=== PATIENT | male | born 1945 | race Caucasian/White ===

== ENCOUNTER 2021-10-04 00:27 | Observation (INO) | payer MEDICARE ==
[~2021-10-04] VITALS: Ht 188 cm; Wt 100.8 kg
[2021-10-04] MEDS ORDERED: HALOPERIDOL LACT 5 MG/ML VIAL. ONE (00:42)
[2021-10-04] MEDS ORDERED: diphenhydrAMINE 50 MG/ML VIAL ONE (00:42)
[2021-10-04] MEDS ORDERED: HALOPERIDOL LACT 5 MG/ML VIAL. IM ONE (00:45)
[2021-10-04] MEDS ORDERED: MORPHINE SULFATE 10 MG/ML SYRINGE. SQ ONE (00:45)
[2021-10-04] MEDS ORDERED: diphenhydrAMINE 50 MG/ML VIAL IM ONE (00:45)
[2021-10-04] MEDS ORDERED: diphenhydrAMINE 50 MG/ML VIAL IVP ONE (01:00)
[2021-10-04] MEDS ORDERED: HALOPERIDOL LACT 5 MG/ML VIAL. IVP ONE (01:00)
[2021-10-04] MEDS ORDERED: IV RINGERS SOLUTION,LACTATED 1,000 ML IV SCH (01:15)
[2021-10-04 02:00] LABS: BASO % 1 % (0-3); EOS # 0.3 x10^3/uL (0.0-0.7); EOS % 7 % (0-3); HEMATOCRIT 36.4 % (39.0-53.0); HEMOGLOBIN 11.9 g/dL (13.0-17.5); LYMPH # 0.6 x10^3/uL (1.0-4.8); LYMPH % 14 % (24-48); MEAN CORPUSCULAR HEMOGLOBIN 28 pg (25-35); MEAN CORPUSCULAR HGB CONC 33 g/dL (31-37); MEAN CORPUSCULAR VOLUME 84 fL (79-100); MONO # 0.6 x10^3/uL (0.0-1.1); MONO % 14 % (0-9); NEUT # 2.8 x10^3uL (1.8-7.7); NEUT % 65 % (31-73); PLATELET COUNT 191 x10^3/uL (140-400); RED BLOOD COUNT 4.33 x10^6/uL (4.30-5.70); RED CELL DISTRIBUTION WIDTH 16.9 % (11.5-14.5); WHITE BLOOD COUNT 4.3 x10^3/uL (4.0-11.0)
[2021-10-04 02:14] LABS: CALCIUM 8.7 mg/dL (8.5-10.1); CREATININE 0.9 mg/dL (0.7-1.3); POTASSIUM 4.2 mmol/L (3.5-5.1)
[2021-10-04 02:23] LABS: CLARITY,URINE CLEAR; COLOR,URINE YELLOW; GLUCOSE,URINE NEG (NEG)
[2021-10-04 02:24] LABS: BACTERIA,URINE 0 /HPF (0-FEW); NITRITE,URINE NEG (NEG); RBC,URINE 0 /HPF (0-2); SQUAMOUS EPITHELIAL CELL,UR OCC /LPF; UROBILINOGEN,URINE 0.2 mg/dL (0.2 mg/dL); WBC,URINE OCC /HPF (0-4)
[2021-10-04 02:26] LABS: ALBUMIN 2.9 g/dL (3.4-5.0); DIRECT BILIRUBIN 0.4 mg/dL (0.0-0.2); MAGNESIUM 1.7 mg/dL (1.8-2.4); TOTAL PROTEIN 6.1 g/dL (6.4-8.2)
--- NOTE | 2021-10-04 02:28 | PHYS DOC ---
Past History Past Medical History: A-Fib, CHF, Dementia Past Medical History BPH Past Surgical History: No Surgical History Alcohol Use: None General Adult EDM: Chief Complaint: ALTERED MENTAL STATUS HPI: HPI: "..He been so agitated tonight.. .. it has been getting worse... He he has severe dementia... According to the neurologist at [facility]... He is a DNR and DNI... But I hate to see him so miserable... Tonight he fell on his knees from the chair and then hit his face.. It did not knock him out.... but gave him a bloody nose,.,,, .. I think he is having trouble.. with urination.. he was to be on flomax... but I had stopped with with some of his other meds... It just he gets so agitated.. I can't control him.. or handle him....I just don't want him to suffer..." ( ) Patient is a 76 year old male who presents with above history and increased agitation. Patient did fall from a chair hitting his face which resulted in an epistaxis. Patient is no longer any anticoagulants. Focus of been primarily comfort care. Patient does take Haldol 2 mg, Ativan and Roxanol 0.5 mg for discomfort and agitation. Patient also take trazodone 50 mg at night for sleep. Patient has significant past medical history which consist of her artery bypass, diabetes, neoplasm of the prostate, obstructive sleep apnea, cardiac pacemaker, CHF, A. fib, angina pectoris, hypertension, vascular dementia with behavior disturbances. Patient normally follows with doctors at [facility]. Patient is on hospice and there is occasionally home health for patient. Review of Systems: Review of Systems: Pt. very poor historian. Constitutional: Denies fever or chills Eyes: Denies change in visual acuity HENT: Denies nasal congestion or sore throat Respiratory: Denies cough or shortness of breath Cardiovascular: Denies chest pain or edema GI: Denies abdominal pain, nausea, vomiting, bloody stools or diarrhea : Denies dysuria Musculoskeletal: Denies back pain or joint pain Integument: Denies rash Neurologic: Denies headache, focal weakness or sensory changes Endocrine: Denies polyuria or polydipsia Lymphatic: Denies swollen glands Psychiatric: Denies depression or anxiety Family History: Family History: Noncontributory to presentation Current Medications: Current Meds: Current Medications Medications (Trade) Dose Ordered Sig/Gilberto Start Time Stop Time Status Last Admin Dose Admin Diphenhydramine HCl (Benadryl) 50 mg 1X ONCE 10/04/21 01:00 10/04/21 01:01 DC 10/04/21 00:51 50 MG Haloperidol Lactate (Haldol) 5 mg 1X ONCE 10/04/21 01:00 10/04/21 01:01 DC 10/04/21 00:51 5 MG Lactated Ringer's 1,000 ml @ 100 mls/hr Q10H 10/04/21 01:15 10/04/21 11:14 Lorazepam (Ativan Inj) 2 mg 1X ONCE 10/04/21 01:00 10/04/21 01:01 DC 10/04/21 00:51 2 MG Morphine Sulfate (Morphine 10mg Syringe) 10 mg 1X ONCE 10/04/21 00:45 10/04/21 01:01 DC 10/04/21 00:53 10 MG Allergies: Allergies: Allergies Coded Allergies Type Severity Reaction Last Updated Verified Unable to Assess 10/04/21 No Physical Exam: PE: Constitutional: Very agitated appears to be uncomfortable, non-toxic appearance. [] HENT: Normocephalic, atraumatic, bilateral external ears normal, oropharynx moist, no oral exudates, nose epistaxis. No septal hematoma no active bleeding Eyes: PERRLA, EOMI, conjunctiva normal, no discharge. [] Neck: Normal range of motion, no tenderness, supple, no stridor. JVD sitting position Cardiovascular: Irregular heart rate regular rhythm, no murmur [] Lungs & Thorax: Bilateral breath sounds equal at apex with scattered crackles on auscultation [. Has] midline scar. Pacer on left Abdomen: Bowel sounds normal, soft, no tenderness, no masses, no pulsatile masses. [] Old surgery scar Skin: Warm, dry, no erythema, no rash. Poor turgor Back: No tenderness, no CVA tenderness. [] Extremities: No tenderness, no cyanosis, no clubbing, ROM intact, marked lower leg edema. [] Neurologic: Agitated, appears to be using all extremities, appears to have distal sensory, no new focal deficits noted per Psychologic: Affect agitated judgement obviously impaired, Current Patient Data: Vital Signs: Vital Signs Date Time Temp Pulse Resp B/P (MAP) Pulse Ox O2 Delivery O2 Flow Rate FiO2 10/04/21 00:54 88 16 107/68 (81) 98 EKG: EKG: My interpretation EKG shows a irregular rhythm. No obvious P waves. PVCs. T wave abnormality particularly in inferior lateral position. No findings of acute STEMI or contralateral changes. Does have occasional pacer spikes. Time EKG is 343 hours [] Radiology/Procedures: Radiology/Procedures: CT head deferred per [][place] [address] IMAGING REPORT Signed PATIENT: HYUN HINKLE ACCOUNT: [id number] : 1945 LOCATION: ER HOLD AGE: 76 SEX: M EXAM STATUS: ADM IN ORD. PHYSICIAN: LUCIAN DARDEN MD REASON: chf, hx PROCEDURE: CHEST AP ONLY EXAMINATION: XR CHEST 1V CLINICAL HISTORY: CHF. EXAM DATE/TIME: 10/04/2021 3:14 AM COMPARISON: None FINDINGS: Lines, Tubes, and Devices: Left-sided dual-chamber cardiac pacemaker/ICD. Cardiomediastinal Silhouette: Cardiomegaly. Aortic atherosclerotic calcification. Lungs and Pleura: Suspected small bilateral pleural effusions with overlying airspace disease, greater on the left but suboptimally evaluated. Nonspecific diffuse interstitial prominence, suspicious for edema. Left hilar curvilinear subsegmental atelectasis and/or scarring. Bones and Soft Tissues: Degenerative changes in the thoracic spine. Median sternotomy wires. IMPRESSION: Findings suspicious for volume overload as described. Electronically signed by: Bo Marino DO (10/04/2021 3:31 AM) [facility] DICTATED AND SIGNED BY: BO MARINO DO DATE: 10/04/21 0329 CC: LUCIAN DARDEN MD; CONNIE CUMMINGS MD; PCP,NO ~ Heart Score: C/O Chest Pain: No Risk Factors: Risk Factors: DM, Current or recent (<one month) smoker, HTN, HLP, family history of CAD, obesity. Risk Scores: Score 0 - 3: 2.5% MACE over next 6 weeks - Discharge Home Score 4 - 6: 20.3% MACE over next 6 weeks - Admit for Clinical Observation Score 7 - 10: 72.7% MACE over next 6 weeks - Early Invasive Strategies Course & Med Decision Making: Course & Med Decision Making Pertinent Labs and Imaging studies reviewed. (See chart for details) Discussions with she advised that she can be managed at home she would like to have her hip become so agitated she has not been able to consistently giving meds. Patient is to remain DNR DNI and no shocks. Advised we can sedate order to obtain labs and check his urine. Discussed presentation, testing and tx. with Dr. Cummings- advised to admit to his service- Medical- Non Tele. with primary diagnosis of CHF. Impression: 1. Hx Fall from Chair on to knees 2. Head Injury-epistaxis. Fall from knees onto face 3. Hx. of Advanced Dementia 4. Hx. CHF- BNP 5052 5. Hx. Afib/ and Pacer 6. Hx. BPH 7. Hyponatremia 8. Malnutrition Alb. 2.9 9. 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 [] Dragon Disclaimer: Dragon Disclaimer: This electronic medical record was generated, in whole or in part, using a voice recognition dictation system. Departure Departure: Referrals: PCP,NO (PCP) Dragon Disclaimer This chart was dictated in whole or in part using Voice Recognition software in a busy, high-work load, and often noisy Emergency Department environment. It may contain unintended and wholly unrecognized errors or omissions. Dragon Disclaimer This chart was dictated in whole or in part using Voice Recognition software in a busy, high-work load, and often noisy Emergency Department environment. It may contain unintended and wholly unrecognized errors or omissions. LUCIAN DARDEN MD Oct 04, 2021 02:27
[2021-10-04] MEDS ORDERED: FUROSEMIDE 40 MG/4 ML VIAL IVP ONE (03:00)
[2021-10-04] MEDS ORDERED: ACETAMINOPHEN 325 MG TABLET PO PRN (03:15)
[2021-10-04] MEDS ORDERED: ONDANSETRON PF 4 MG/2 ML VIAL. IVP PRN (03:15)
--- NOTE | 2021-10-04 03:33 | RAD ---
EXAMINATION: XR CHEST 1V CLINICAL HISTORY: CHF. EXAM DATE/TIME: 10/04/2021 3:14 AM COMPARISON: None FINDINGS: Lines, Tubes, and Devices: Left-sided dual-chamber cardiac pacemaker/ICD. Cardiomediastinal Silhouette: Cardiomegaly. Aortic atherosclerotic calcification. Lungs and Pleura: Suspected small bilateral pleural effusions with overlying airspace disease, greate r on the left but suboptimally evaluated. Nonspecific diffuse interstitial prominence, suspicious for edema. Left hilar curvilinear subsegmental atelectasis and/or scarring. Bones and Soft Tissues: Degenerative changes in the thoracic spine. Median sternotomy wires. IMPRESSION: Findings suspicious for volume overload as described. Electronically signed by: Bo Childers DO (10/04/2021 3:31 AM) TALIA
[2021-10-04] MEDS ORDERED: METF10007 PO (04:25)
[2021-10-04] MEDS ORDERED: GLIM4TAB8 PO (04:28)
[2021-10-04] MEDS ORDERED: TRAZ-120 PO (04:29)
[2021-10-04 04:37] VITALS: BP 126/50
[2021-10-04] MEDS ORDERED: QUET25TA5 PO (04:42)
[2021-10-04] MEDS ORDERED: CELE100C PO (04:42)
[2021-10-04] MEDS ORDERED: MELA3CAP2 PO (04:42)
[2021-10-04] MEDS ORDERED: LORA-254 PO (04:42)
[2021-10-04] MEDS ORDERED: HALDOL PO (04:42)
[2021-10-04] MEDS: IPRATRPIUM/ALBUTEROL 0.5/2.5MG 3 ML NEBU. NEB SCH ×4 (05:19→19:50)
[2021-10-04] MEDS: metFORMIN 500 MG TABLET PO SCH ×2 (08:30→17:00)
[2021-10-04] MEDS ORDERED: HALOPERIDOL 10 MG/5 ML ORAL.CONC. PO PRN (08:30)
[2021-10-04] MEDS: LORazepam 1 MG TABLET PO SCH ×2 (08:34→22:16)
[2021-10-04] MEDS: GLIMEPIRIDE 2 MG TABLET PO SCH (08:34)
--- NOTE | 2021-10-04 08:39 | HP ---
DATE OF SERVICE: 10/04/2021 ADMIT DATE: 10/04/2021 ATTENDING PHYSICIAN: Dr. Ball. CHIEF COMPLAINT: Altered mentation. HISTORY OF PRESENT ILLNESS: The patient is a 76-year-old gentleman with underlying dementia. He usually sees a neurologist in [facility]. He was admitted through our ED. No local physicians here. The has been having trouble with him. She cannot manage him. He is a DNR per advanced directive. He really needs a higher level of care. I am in the process of contacting her to see what senior living they would like to go to. He was given Haldol and Ativan to calm him down. He was fairly asleep by the time I saw him. PAST MEDICAL HISTORY: Significant for atrial fibrillation, hypertension, and profound dementia. There is a remote history of congestive heart failure. CURRENT MEDICATIONS: Reviewed. He was on Celebrex, trazodone, Seroquel, lorazepam, metformin, glimepiride, melatonin, and Haldol p.r.n. ALLERGIES: HE HAS ALLERGIES TO WHEAT. No drug allergies. SOCIAL HISTORY: Smoking and drinking history unobtainable. FAMILY HISTORY: Unobtainable. REVIEW OF SYSTEMS: Unobtainable. PHYSICAL EXAMINATION: GENERAL: When I saw him, this is obtunded gentleman who was not arousable. VITAL SIGNS: Initial vital signs showed a blood pressure of 126/50, pulse is 88 and regular. He is afebrile. Oxygen saturation 95% on room air. HEENT: Head is without trauma. Pupils are reactive. Sclerae nonicteric. The oropharynx is clear. NECK: Supple. No bruits identified. LUNGS: Shallow respirations. CARDIOVASCULAR: Showed regular heart tones. ABDOMEN: Soft. No guarding. EXTREMITIES: Show 2+ pitting edema of the lower extremities. NEUROLOGIC: He is sedated. LABORATORY DATA: Admission hemoglobin is 11.9 g/dL with a white count of 4300. Sodium is 128 mEq per liter. Cardiac enzymes negative for coronary ischemia. Creatinine 0.9 mg percent. He had a chest x-ray, which showed volume overload and vascular congestion. ASSESSMENT: 1. A 76-year-old gentleman with agitation. is unable to manage him. 2. [id number] congestive heart failure. 3. Paroxysmal atrial fibrillation. 4. Type 2 diabetes. PLAN: 1. Admit to the inpatient unit. 2. Diuresis. 3. He does not require supplemental oxygen. 4. We will stop the Celebrex right now, which will aggravate heart failure. 5. I will try to contact the as to placement. 6. He is a DNR per advanced directive. TATIANA DR: Megha TID: [id number]
[2021-10-04 11:15] VITALS: BP 114/72
[2021-10-04 19:10] VITALS: BP 125/76
--- NOTE | 2021-10-04 21:02 | EKG ---
[address] [address] Test Date: 2021-10-04 Test Time: 03:43:22 Pat Name: HYUN HINKLE Department: Room: 109 A Gender: M Idea Worker: LAYLA : 1945 Requested By: LUCIAN DARDEN Order Number: [id number] Reading MD: Lopez Ying Measurements Intervals [place] Rate: 98 P: MO: QRS: 167 QRSD: 22 T: 17 QT: 244 QTc: 313 Interpretive Statements ATRIAL FIBRILLATION VENTRICULAR PREMATURE COMPLEX(ES) ABNORMAL RIGHT AXIS DEVIATION T ABNORMALITY IN ANTERIOR LEADS INFEROLATERAL LEADS ABNORMAL ECG RI6.02 No previous ECG available for comparison Electronically Signed On 10-04-2021 21:17:00 CDT by Lopez Ying
[2021-10-04] MEDS: traZODone 50 MG TABLET. PO SCH (22:16)
[2021-10-04] MEDS: QUEtiapine 25 MG TABLET. PO SCH (22:17)
[2021-10-04] MEDS: HALOPERIDOL 10 MG/5 ML ORAL.CONC. PO SCH (22:17)
[2021-10-04] MEDS: MIRTAZAPINE 7.5 MG TABLET. PO SCH (22:17)
[2021-10-05 06:02] VITALS: BP 123/78
[2021-10-05] MEDS: metFORMIN 500 MG TABLET PO SCH ×3 (08:00→19:59)
[2021-10-05] MEDS: HALOPERIDOL 10 MG/5 ML ORAL.CONC. PO SCH (08:50)
[2021-10-05] MEDS: MORPHINE SULFATE 20 MG/ML CONC SOLUTION. SL PRN ×2 (08:50→13:46)
[2021-10-05] MEDS: GLIMEPIRIDE 2 MG TABLET PO SCH (09:00)
[2021-10-05] MEDS: LORazepam 1 MG TABLET PO SCH ×3 (09:00→11:03)
[2021-10-05 09:53] LABS: BASO # 0.1 x10^3/uL (0.0-0.2); BASO % 2 % (0-3); EOS # 0.5 x10^3/uL (0.0-0.7); EOS % 10 % (0-3); HEMATOCRIT 39.3 % (39.0-53.0); HEMOGLOBIN 12.7 g/dL (13.0-17.5); LYMPH # 0.7 x10^3/uL (1.0-4.8); LYMPH % 14 % (24-48); MEAN CORPUSCULAR HEMOGLOBIN 27 pg (25-35); MEAN CORPUSCULAR HGB CONC 32 g/dL (31-37); MEAN CORPUSCULAR VOLUME 85 fL (79-100); MONO # 0.6 x10^3/uL (0.0-1.1); MONO % 13 % (0-9); NEUT % 61 % (31-73); PLATELET COUNT 204 x10^3/uL (140-400); RED BLOOD COUNT 4.62 x10^6/uL (4.30-5.70); RED CELL DISTRIBUTION WIDTH 17.4 % (11.5-14.5)
[2021-10-05 09:59] LABS: CALCIUM 8.6 mg/dL (8.5-10.1); CREATININE 0.9 mg/dL (0.7-1.3)
[2021-10-05] MEDS ORDERED: LORazepam 1 MG TABLET PO PRN (12:00)
[2021-10-05 19:53] VITALS: BP 147/79
[2021-10-05] MEDS: MIRTAZAPINE 7.5 MG TABLET. PO SCH (19:56)
[2021-10-05] MEDS: traZODone 50 MG TABLET. PO SCH (19:56)
[2021-10-05] MEDS: QUEtiapine 25 MG TABLET. PO SCH (19:57)
[2021-10-05] MEDS ORDERED: MIRTAZAPINE 7.5 MG TABLET. PO SCH (21:00)
--- NOTE | 2021-10-05 22:14 | PDOC ---
Exam Note: Alli Note: Late entry for 10/04/2021. Please also refer to the separate dictated note~for this date of service dictated separately.~Patient seen individually. Discussed the patient with Nursing staff reviewed the chart.~Reviewed interim history and current functioning. Reviewed vital signs,~Labs/ Radiology~and current medi cations noted below. Continue current treatment with the changes noted in the dictated addendum note Assessment: Vital Signs/I&O: Vital Signs Date Time Temp Pulse Resp B/P (MAP) Pulse Ox O2 Delivery O2 Flow Rate FiO2 10/05/21 19:53 98.2 88 18 147/79 (101) 93 Room Air I & O 10/04/21 10/04/21 10/05/21 15:00 23:00 07:00 Output Total 1700 ml 750 ml 1150 ml Balance -1700 ml -750 ml -1150 ml Labs: Laboratory Tests Test 10/05/21 09:40 White Blood Count 5.0 x10^3/uL (4.0-11.0) Red Blood Count 4.62 x10^6/uL (4.30-5.70) Hemoglobin 12.7 g/dL (13.0-17.5) L Hematocrit 39.3 % (39.0-53.0) Mean Corpuscular Volume 85 fL (79-100) Mean Corpuscular Hemoglobin 27 pg (25-35) Mean Corpuscular Hemoglobin Concent 32 g/dL (31-37) Red Cell Distribution Width 17.4 % (11.5-14.5) H Platelet Count 204 x10^3/uL (140-400) Neutrophils (%) (Auto) 61 % (31-73) Lymphocytes (%) (Auto) 14 % (24-48) L Monocytes (%) (Auto) 13 % (0-9) H Eosinophils (%) (Auto) 10 % (0-3) H Basophils (%) (Auto) 2 % (0-3) Neutrophils # (Auto) 3.0 x10^3uL (1.8-7.7) Lymphocytes # (Auto) 0.7 x10^3/uL (1.0-4.8) L Monocytes # (Auto) 0.6 x10^3/uL (0.0-1.1) Eosinophils # (Auto) 0.5 x10^3/uL (0.0-0.7) Basophils # (Auto) 0.1 x10^3/uL (0.0-0.2) Sodium Level 136 mmol/L (136-145) Potassium Level 4.0 mmol/L (3.5-5.1) Chloride Level 103 mmol/L (98-107) Carbon Dioxide Level 26 mmol/L (21-32) Anion Gap 7 (6-14) Blood Urea Nitrogen 14 mg/dL (8-26) Creatinine 0.9 mg/dL (0.7-1.3) Estimated GFR (Cockcroft-Gault) 82.0 Glucose Level 96 mg/dL (70-99) Calcium Level 8.6 mg/dL (8.5-10.1) Current Medications: Meds: Laboratory Tests Test 10/05/21 09:40 White Blood Count 5.0 x10^3/uL Red Blood Count 4.62 x10^6/uL Hemoglobin 12.7 g/dL Hematocrit 39.3 % Mean Corpuscular Volume 85 fL Mean Corpuscular Hemoglobin 27 pg Mean Corpuscular Hemoglobin Concent 32 g/dL Red Cell Distribution Width 17.4 % Platelet Count 204 x10^3/uL Neutrophils (%) (Auto) 61 % Lymphocytes (%) (Auto) 14 % Monocytes (%) (Auto) 13 % Eosinophils (%) (Auto) 10 % Basophils (%) (Auto) 2 % Neutrophils # (Auto) 3.0 x10^3uL Lymphocytes # (Auto) 0.7 x10^3/uL Monocytes # (Auto) 0.6 x10^3/uL Eosinophils # (Auto) 0.5 x10^3/uL Basophils # (Auto) 0.1 x10^3/uL Sodium Level 136 mmol/L Potassium Level 4.0 mmol/L Chloride Level 103 mmol/L Carbon Dioxide Level 26 mmol/L Anion Gap 7 Blood Urea Nitrogen 14 mg/dL Creatinine 0.9 mg/dL Estimated GFR (Cockcroft-Gault) 82.0 Glucose Level 96 mg/dL Calcium Level 8.6 mg/dL Current Medications Medications (Trade) Dose Ordered Sig/Gilberto Route PRN Reason Start Time Stop Time Status Last Admin Dose Admin Haloperidol Lactate (Haldol) 5 mg 1X ONCE IM 10/04/21 00:45 10/04/21 00:47 DC Diphenhydramine HCl (Benadryl) 50 mg 1X ONCE IM 10/04/21 00:45 10/04/21 00:47 DC Morphine Sulfate (Morphine 10mg Syringe) 10 mg 1X ONCE SQ 10/04/21 00:45 10/04/21 01:01 DC 10/04/21 00:53 Haloperidol Lactate (Haldol) 5 mg STK-MED ONCE .ROUTE 10/04/21 00:42 10/04/21 00:47 DC Diphenhydramine HCl (Benadryl) 50 mg STK-MED ONCE .ROUTE 10/04/21 00:42 10/04/21 00:47 DC Haloperidol Lactate (Haldol) 5 mg 1X ONCE IVP 10/04/21 01:00 10/04/21 01:01 DC 10/04/21 00:51 Diphenhydramine HCl (Benadryl) 50 mg 1X ONCE IVP 10/04/21 01:00 10/04/21 01:01 DC 10/04/21 00:51 Lorazepam (Ativan Inj) 2 mg 1X ONCE IVP 10/04/21 01:00 10/04/21 01:01 DC 10/04/21 00:51 Lactated Ringer's 1,000 ml @ 100 mls/hr Q10H IV 10/04/21 01:15 10/04/21 11:14 DC 10/04/21 02:34 Furosemide (Lasix) 40 mg 1X ONCE IVP 10/04/21 03:00 10/04/21 03:01 DC 10/04/21 03:47 Ondansetron HCl (Zofran) 4 mg PRN Q4HRS PRN IVP NAUSEA/VOMITING 10/04/21 03:15 10/05/21 03:15 DC Acetaminophen (Tylenol) 650 mg PRN Q4HRS PRN PO FEVER > 100.3'F 10/04/21 03:15 10/05/21 03:15 DC Albuterol/ Ipratropium (Duoneb) 3 ml RTQID NEB 10/04/21 08:00 10/05/21 07:59 DC Lorazepam (Ativan Inj) 2 mg QIDPRN ONCE IVP 10/04/21 03:15 10/04/21 03:16 DC Lorazepam (Ativan Inj) 2 mg PRN QHS PRN IVP ANXIETY / AGITATION 10/04/21 21:00 Cancel Trazodone HCl (Desyrel) 50 mg HS PO 10/04/21 21:00 10/05/21 19:56 Haloperidol Lactate (HALDOL 10mg ORAL CONC) 2 mg HS PO 10/04/21 21:00 10/05/21 08:50 Lorazepam (Ativan) 1 mg BID PO 10/04/21 09:00 10/05/21 11:54 DC 10/05/21 11:03 Quetiapine Fumarate (SEROquel) 25 mg QHS PO 10/04/21 21:00 10/05/21 19:57 Glimepiride (Amaryl) 2 mg DAILY PO 10/04/21 09:00 Metformin HCl (Glucophage) 1,000 mg BIDWMEALS PO 10/04/21 08:30 Haloperidol Lactate (HALDOL 10mg ORAL CONC) 2 mg PRN Q4HRS PRN PO 2nd choice agitation 10/04/21 08:30 Lorazepam (Ativan Inj) 1 mg PRN Q4HRS PRN IVP 3rd choice anxiety/agitated 10/04/21 14:00 10/05/21 20:02 Mirtazapine (Remeron) 7.5 mg QHS PO 10/04/21 21:00 10/05/21 19:56 Olanzapine (ZyPREXA ZYDIS) 2.5 mg PRN Q2HRS PRN PO PSYCHOSIS 10/04/21 20:45 10/05/21 20:52 Morphine Sulfate (Roxanol Conc) 10 mg PRN Q4HRS PRN SL PAIN 10/05/21 08:30 10/05/21 13:46 Lorazepam (Ativan) 1 mg PRN Q4HRS PRN PO 1st choice anxiety/agitation 10/05/21 12:00 Mirtazapine (Remeron) 7.5 mg QHS PO 10/05/21 21:00 UNV Current Medications Medications (Trade) Dose Ordered Sig/Gilberto Route PRN Reason Start Time Stop Time Status Last Admin Dose Admin Morphine Sulfate (Roxanol Conc) 10 mg PRN Q4HRS PRN SL PAIN 10/05/21 08:30 10/05/21 13:46 I have reviewed the current psychotropics carefully including drug interactions. Risk benefit ratio favors no change other than as noted in my dictated progress note. ERICK CANO MD Oct 05, 2021 22:14
--- NOTE | 2021-10-05 22:40 | CONS ---
DATE OF CONSULTATION: 10/05/2021 PSYCHIATRIC ADMISSION HISTORY/EVALUATION This is a late entry, date of service 10/04/2021, covers elements not covered in my initial note 10/04/2021. The patient seen individually in his room 109, [address] [place] [address], on evening of 10/04/2021, discussed with nursing staff, reviewed the chart. IDENTIFYING DATA: The patient is a 76-year-old male referred by Dr. Ball on account of worsening behaviors related to his progressively worsening dementia while he has been living at home with family. He has had marked insomnia, agitation and aggression towards his refusing medications. He has been on hospice care as well. He has failed all of these interventions from a psychiatric behavioral standpoint and has been referred for evaluation of his psychotropics. I met with the patient in his room, but he is oriented just to himself if that. Not able to provide a history, quite sedated. HISTORY OF PRESENT ILLNESS: Reportedly, the patient has been seen by neurologist in [facility]. He was admitted to [address] [place] [address] via the Emergency Department. He has been increasingly agitated with sleep and appetite changes. No active suicidal or homicidal ideation. No symptoms of bipolar disorder. PAST PSYCHIATRIC HISTORY: As above. MEDICAL HISTORY: Atrial fibrillation, hypertension, congestive heart failure and he is admitted with acute on chronic congestive heart failure, also has a history of paroxysmal atrial fibrillation and type 2 diabetes mellitus. FAMILY HISTORY: Noncontributory. SOCIAL HISTORY: The patient lives at home with his . He has been on hospice care. No alcohol, drug abuse history is noted. CURRENT PSYCHOTROPICS: Haldol concentrate 2 mg at bedtime and 2 mg oral q. 4 hours p.r.n., psychosis, agitation; Ativan 1 mg b.i.d. plus Ativan IM p.r.n. Seroquel 25 mg at bedtime, trazodone 50 mg at bedtime. FAMILY HISTORY: Noncontributory. SOCIAL HISTORY: No alcohol, drug abuse history is noted. MENTAL STATUS EXAM: The patient is oriented to himself. Insight, judgment, recent and remote memory, attention, concentration, fund of knowledge poor consistent with his diagnosis as per the observation by nursing staff. During the individual visit, the patient was sedated, not verbally interactive at all, oriented barely to himself. IMPRESSION: Major neurocognitive disorder, Alzheimer, vascular with delusion, depression, behavioral disturbance, anxiety disorder, unspecified; impulse control disorder, unspecified. Rest as noted above. PLAN: From a psychiatric standpoint, discussed with nursing staff and we will go ahead and taper the Ativan down from 1 mg twice a day down to 0.5 mg twice a day. Maintain Haldol 2 mg at bedtime and add Zyprexa 2.5 mg q. 2 hours p.r.n., psychosis, agitation, max 7.5 mg in 24 hours. Consider adding an SSRI agent and also consider Depakote as a mood stabilizer, behavioral dyscontrol persists. We may consider transitioning him to the [facility], once he is medically stable from his hyponatremia and failure to thrive per Dr. Ball. Dr. Ball, thank you for the opportunity to participate in your patient's care. We will follow with you. REYMUNDO DR: Sasha TID: [id number]
--- NOTE | 2021-10-05 22:47 | PN ---
DATE: 10/05/2021 ATTENDING PHYSICIAN: Dr. Ball. SUBJECTIVE: Very confused, agitated. He is being fed. He is bedridden. He is pulling out his Esquivel catheter. P.r.n. Ativan and morphine has been ordered. He turns out in talking with his niece who is a registered nurse here at this hospital, he has already been on hospice [facility]. This information was not garnered to us. Therefore, they may not understand how hospice system works. In any event, we are still keeping him here and we will try for care home placement starting tomorrow. OBJECTIVE FINDINGS: VITAL SIGNS: Blood pressure this morning is 125/76 mmHg. He is afebrile, pulse is 94 per minute and his oxygen saturation is at 95% on room air. HEENT: Head is without trauma. Pupils are reactive. Sclerae nonicteric. Oropharynx is clear. NECK: Supple. LUNGS: Shallow respirations. CARDIOVASCULAR: Regular heart tones. ABDOMEN: Soft. EXTREMITIES: Showed 2+ edema. Esquivel catheter is in place. ASSESSMENT: 1. A 76-year-old gentleman with profound dementia, unable to be managed at home. He has significant agitation. 2. Acute on chronic congestive heart failure. 3. I find evidence of a pacemaker defibrillator. 4. Paroxysmal atrial fibrillation. 5. Type 2 diabetes mellitus. PLAN: 1. We shall remove the Esquivel catheter. 2. P.r.n. Ativan and morphine. 3. Diet as tolerated. 4. We are working on care home placement. He is a DNR per advanced directive. SREEKANTH/GIOVANNY/SADE DR: Megha TID: [id number]
[2021-10-06] MEDS: GLIMEPIRIDE 2 MG TABLET PO SCH (09:00)
[2021-10-06 11:00] VITALS: BP 152/90
[2021-10-06] MEDS: MORPHINE SULFATE 20 MG/ML CONC SOLUTION. SL PRN (11:53)
[2021-10-06] MEDS ORDERED: GLIM2TAB7 PO (16:08)
[2021-10-06] MEDS ORDERED: LORA2ORA8 PO (16:08)
[2021-10-06] MEDS ORDERED: HALO2TAB PO ×2 (16:08)
[2021-10-06] MEDS ORDERED: MIRT7.5T8 PO (16:08)
[2021-10-06] MEDS ORDERED: OLAN5TAB67 PO (16:08)
[2021-10-06] MEDS ORDERED: MOR20SLSJL SL (16:08)
[2021-10-06] MEDS ORDERED: QUET25TA5 PO (16:08)
--- NOTE | 2021-10-06 16:14 | DS ---
DATE OF DISCHARGE: 10/06/2021 ATTENDING PHYSICIAN: Dr. Ball. FINAL DISCHARGE DIAGNOSES: 1. Acute delirium with agitation. 2. Underlying dementia. 3. Chronic congestive heart failure, compensated. 4. Paroxysmal atrial fibrillation. 5. Type 2 diabetes mellitus. HISTORY AND PHYSICAL: The patient, age 76, has profound dementia. He has been agitated, cannot manage him. As it turned out, he was already admitted to [facility] service with end-stage dementia. She never told the ER, brought him to the ED. ED did not know and admitted him to my service. PHYSICAL EXAMINATION: Please see the dictated note. PERTINENT LABORATORY AND X-RAY STUDIES: Hemoglobin 12.7 grams, white count 5000. Chemistry panel unremarkable. Troponins were negative. Chest x-ray on admission was clear with mild volume overload. COURSE IN THE HOSPITAL: The patient was admitted. He is a DNR per advanced directives. He was seen in consultation with Dr. Sanderson. He recommended some antipsychotic medications. Please refer to his note. He calmed down. We were able to discuss with the family. He has a niece that actually is a nurse here in the hospital. On the third hospital day, our family caseworker were able to contact [facility] for acute restless care in this situation. He is discharged then with continuation of his Amaryl 2 mg daily, Haldol 2 mg p.r.n., lorazepam 1 mg q.4 hours p.r.n. agitation, Remeron, morphine sulfate 10 mg q.4 hours p.r.n, Zyprexa Zydis, Seroquel, metformin, and trazodone doses unchanged. He is a DNR. His prognosis is poor. He was discharged then from our hospital in stable condition with explicit drug and followup of end-of-life care. SREEKANTH/JAVIER/CLIFF DR: Megha TID: [id number]
--- NOTE | 2021-10-07 08:37 | PDOC ---
Exam Note: Alli Note: This note is a late entry for 10/05/2021 covers elements not covered in my initial note. Subjective: The patient was seen individually on 10/05/2021, discussed and reviewed the chart with nursing staff. Per nursing staff, the patient has been intermittently agitated during the day and used all 3 dosages of his Zyprexa 2.5 mg. We will increase the maximum dosage from 7.5 mg to 10 mg in 24 hours for his agitation. He also has some intermittent restlessness and some insomnia despite the trazodone. We will add Remeron 7.5 mg p.o. h.s. and consider using SSRIs for agitation, anxiety and Depakote as a mood stabilizer if needed. He may need transition to [facility] if behaviors persist despite medical stabilization. Also discussed with Sybil TOMLIN evening wash house supervisor and reportedly the family is wanting him kept comfortable and as sedated as possible to prevent behavioral problems. He has been on hospice for some time as well. He was lying in bed with protective covers on the metal railings of the bed because of his restlessness and agitation. He is not verbally interactive, quite sedated. Mental Status Exam: Per nursing observation, insight and judgment, recent and remote memory, attention and concentration, fund of knowledge is poor consistent with his diagnoses. Impression: Major neurocognitive disorder, Alzheimer, vascular with delusion, depression, behavioral disturbance. Anxiety disorder unspecified. Impulse control disorder unspecified. Plan: Continue psychotropics as mentioned above including adding Remeron, maintaining trazodone, Ativan is being reduce. He remains on Haldol and Seroquel. We will consider transition to SB once he is medically stable. We will keep open the option of SSRIs versus Depakote if behavioral dyscontrol persists despite all of the above. Assessment: Vital Signs/I&O: Vital Signs Date Time Temp Pulse Resp B/P (MAP) Pulse Ox O2 Delivery O2 Flow Rate FiO2 10/06/21 12:23 93 Room Air 10/06/21 11:53 17 10/06/21 11:00 96.9 71 152/90 (110) I & O 10/06/21 10/06/21 10/07/21 15:00 23:00 07:00 Intake Total 0 ml Balance 0 ml Current Medications: I have reviewed the current psychotropics carefully including drug interactions. Risk benefit ratio favors no change other than as noted in my dictated progress note. Diagnosis: Problems: (1) Major neurocognitive disorder (2) Dementia in Alzheimer's disease with delusions (3) Dementia in Alzheimer's disease with depression (4) Dementia in Alzheimer's disease with early onset with behavioral disturbance (5) Dementia, vascular, with delusions (6) Dementia, vascular, with depression (7) Anxiety disorder, unspecified (8) Impulse control disorder, unspecified ERICK CANO MD Oct 07, 2021 08:37
== END 2021-10-06 14:50 | disposition hospice, inpatient (51) ==
LOC: ER 00:27 → INTOOBSV 03:03 → ER HOLD 03:03 → 1 SOUTH 04:03
PROVIDERS: ADMIT Hospitalist; ATTEND Hospitalist
DX: R41.0 Disorientation, unspecified (principal); F02.81 Dementia in other diseases classified elsewhere, unspecified severity, with behavioral disturbance; I11.0 Hypertensive heart disease with heart failure; S09.90XA Unspecified injury of head, initial encounter; I50.33 Acute on chronic diastolic (congestive) heart failure; I48.0 Paroxysmal atrial fibrillation; E11.9 Type 2 diabetes mellitus without complications; E46 Unspecified protein-calorie malnutrition; R45.1 Restlessness and agitation; E87.1 Hypo-osmolality and hyponatremia; D64.9 Anemia, unspecified; F01.51 Vascular dementia, unspecified severity, with behavioral disturbance; F32.A Depression, unspecified; F41.9 Anxiety disorder, unspecified; F63.9 Impulse disorder, unspecified; G30.9 Alzheimer's disease, unspecified; G47.00 Insomnia, unspecified; N40.0 Benign prostatic hyperplasia without lower urinary tract symptoms; R04.0 Epistaxis; Z51.5 Encounter for palliative care; Z66 Do not resuscitate; Z74.01 Bed confinement status; Z79.84 Long term (current) use of oral hypoglycemic drugs; Z95.0 Presence of cardiac pacemaker; Z68.28 Body mass index [BMI] 28.0-28.9, adult; W07.XXXA Fall from chair, initial encounter; Y92.89 Other specified places as the place of occurrence of the external cause; Y93.89 Activity, other specified; Y99.8 Other external cause status
CPT/HCPCS: 36415; 51702; 71045; 80048; 80076; 81001; 83735; 83880; 84484; 85025; 85730; 93005; 96372; 96374; 96375; 96376; 99285; G0378; J1200; J1630; J1940; J2060; J2270; J7120; 96361; G0379

== ENCOUNTER 2021-10-06 14:55 | Inpatient (IN) | payer OTHER ==
[~2021-10-06 14:55] MED LIST: CELE100C PO; GLIM4TAB8 PO; HALDOL PO; LORA-254 PO; MELA3CAP2 PO; METF10007 PO; QUET25TA5 PO; TRAZ-120 PO
[2021-10-06] MEDS ORDERED: QUET25TA5 PO (16:08)
[2021-10-06] MEDS ORDERED: GLIM2TAB7 PO (16:08)
[2021-10-06] MEDS ORDERED: LORA2ORA8 PO (16:08)
[2021-10-06] MEDS ORDERED: MOR20SLSJL SL (16:08)
[2021-10-06] MEDS ORDERED: HALO2TAB PO ×2 (16:08)
[2021-10-06] MEDS ORDERED: OLAN5TAB67 PO (16:08)
[2021-10-06] MEDS ORDERED: MIRT7.5T8 PO (16:08)
[2021-10-06] MEDS ORDERED: LORazepam 1 MG TABLET PO PRN (16:45)
[2021-10-06] MEDS ORDERED: HALOPERIDOL 10 MG/5 ML ORAL.CONC. PO PRN (16:45)
[2021-10-06] MEDS: metFORMIN 500 MG TABLET PO SCH (17:00)
[2021-10-06] MEDS ORDERED: LORazepam INTENSOL 2 MG/ML BOTTLE SL PRN (19:15)
[2021-10-06] MEDS ORDERED: HALOPERIDOL 2 MG TABLET PO SCH (20:00)
--- NOTE | 2021-10-06 20:51 | PN ---
DATE: 10/06/2021 ATTENDING PHYSICIAN: Dr. Ball. SUBJECTIVE: Obtunded, nonverbal. OBJECTIVE FINDINGS: VITAL SIGNS: Blood pressure this morning is 147/79 mmHg. He is afebrile. Oxygen saturation 92% on room air. HEENT: Head is without trauma. Pupils are reactive. Sclerae nonicteric. Oropharynx clear. No stridor. NECK: Supple. LUNGS: Shallow respirations. CARDIOVASCULAR: Showed regular heart tones. ABDOMEN: Soft. EXTREMITIES: Without edema. NEUROLOGIC: Profoundly confused and sedated and bedridden. LABORATORY DATA: Followup laboratory studies reviewed. Electrolytes and CBC within normal range. ASSESSMENT: 1. A 76-year-old gentleman with profound dementia with agitation. His cannot manage him at home. 2. Acute on chronic congestive heart failure, compensated. 3. History of pacemaker defibrillator. 4. Paroxysmal atrial fibrillation. 5. Type 2 diabetes mellitus. PLAN: 1. Dr. Sanderson has written for psychiatric regimen. 2. He is a candidate for the [facility]. We will discharge him upstairs when a bed is available. SREEKANTH/BUZZ DR: SREEKANTH/anamaria TID: [id number]
[2021-10-06] MEDS: HALOPERIDOL 10 MG/5 ML ORAL.CONC. PO SCH (21:00)
[2021-10-06] MEDS: CELECOXIB 100 MG CAPSULE PO SCH (21:00)
[2021-10-06] MEDS: traZODone 50 MG TABLET. PO SCH (21:00)
[2021-10-06] MEDS ORDERED: QUEtiapine 25 MG TABLET. PO SCH (21:00)
[2021-10-06] MEDS: MIRTAZAPINE 7.5 MG TABLET. PO SCH (21:00)
[2021-10-06] MEDS: MELATONIN 3 MG TABLET PO SCH (21:00)
[2021-10-06] MEDS: QUEtiapine 25 MG TABLET. PO SCH (21:00)
[2021-10-06] MEDS: MORPHINE SULFATE 20 MG/ML CONC SOLUTION. SL PRN (21:42)
[2021-10-06 23:00] VITALS: BP 163/98
[2021-10-07] MEDS: MORPHINE SULFATE 20 MG/ML CONC SOLUTION. SL PRN ×2 (01:32→06:31)
[2021-10-07] MEDS: LORazepam INTENSOL 2 MG/ML BOTTLE SL PRN ×4 (04:32→20:54)
[2021-10-07 08:00] VITALS: BP 143/87
[2021-10-07] MEDS: metFORMIN 500 MG TABLET PO SCH ×2 (08:00→16:59)
[2021-10-07] MEDS: CELECOXIB 100 MG CAPSULE PO SCH ×2 (08:28→20:52)
[2021-10-07] MEDS: GLIMEPIRIDE 2 MG TABLET PO SCH (08:28)
[2021-10-07] MEDS ORDERED: GLIMEPIRIDE PO SCH (09:00)
[2021-10-07 20:46] VITALS: BP 167/87
[2021-10-07] MEDS: traZODone 50 MG TABLET. PO SCH (20:52)
[2021-10-07] MEDS: HALOPERIDOL 10 MG/5 ML ORAL.CONC. PO SCH (20:52)
[2021-10-07] MEDS: MELATONIN 3 MG TABLET PO SCH (20:53)
[2021-10-07] MEDS: MIRTAZAPINE 7.5 MG TABLET. PO SCH (20:53)
[2021-10-07] MEDS: QUEtiapine 25 MG TABLET. PO SCH (20:53)
--- NOTE | 2021-10-07 22:34 | PN ---
The patient technically yesterday was discharged to [facility]. I am dictating this note, seeing him on behalf of Dr. Spencer. He will be here tomorrow. SUBJECTIVE: Nonverbal, obtunded. OBJECTIVE FINDINGS: VITAL SIGNS: Blood pressure this morning is 143/87, pulse 106, temperature 98.0 degrees Fahrenheit, oxygen saturation 91% on room air. HEENT: Head is without trauma. Pupils are reactive. Sclerae nonicteric. Oropharynx clear. NECK: Supple. LUNGS: Shallow respirations. CARDIOVASCULAR: Regular heart tones. ABDOMEN: Soft. EXTREMITIES: Show trace edema. NEUROLOGIC FINDINGS: Obtunded and bedridden. ASSESSMENT: 1. A 76-year-old gentleman with profound dementia and agitation. His cannot manage him home. Evidently, he was already in hospice. 2. Acute on chronic congestive heart failure, compensated. 3. History of permanent pacemaker defibrillator. 4. Paroxysmal atrial fibrillation. 5. Type 2 diabetes. PLAN: 1. Recommendations per Dr. Sanderson for his psychiatric meds. 2. Given his insurance, it turns out he is not a candidate for the [facility]. He is on Medicare. They do not have a contract with the [facility]. 3. He will be in [facility]. SREEKANTH/JESSICA BUTLER: Megha TID: [id number]
[2021-10-08] MEDS: LORazepam INTENSOL 2 MG/ML BOTTLE SL PRN ×7 (04:11→23:40)
[2021-10-08] MEDS: MORPHINE SULFATE 20 MG/ML CONC SOLUTION. SL PRN ×5 (05:32→23:40)
[2021-10-08 07:17] VITALS: BP 164/100
[2021-10-08] MEDS: metFORMIN 500 MG TABLET PO SCH ×2 (08:00→17:00)
[2021-10-08] MEDS: GLIMEPIRIDE 2 MG TABLET PO SCH (08:22)
[2021-10-08] MEDS: CELECOXIB 100 MG CAPSULE PO SCH ×2 (08:23→20:24)
[2021-10-08] MEDS ORDERED: SCOPOLAMINE 1.5MG PATCH. TD SCH (14:00)
[2021-10-08 15:04] VITALS: BP 129/76
[2021-10-08 19:25] VITALS: BP 142/87
[2021-10-08] MEDS: MELATONIN 3 MG TABLET PO SCH (20:25)
[2021-10-08] MEDS: MIRTAZAPINE 7.5 MG TABLET. PO SCH (20:25)
[2021-10-08] MEDS: traZODone 50 MG TABLET. PO SCH (20:25)
[2021-10-08] MEDS: HALOPERIDOL 10 MG/5 ML ORAL.CONC. PO SCH (20:25)
[2021-10-08] MEDS: QUEtiapine 25 MG TABLET. PO SCH (20:25)
--- NOTE | 2021-10-09 04:57 | PN ---
DATE: 10/08/2021 SUBJECTIVE: The patient is resting, slightly propped up in bed, in no apparent distress. He is encephalopathic, mostly nonverbal. Nursing staff stated that the patient probably needs more of the morphine and also scopolamine patch as he seems to be still restless and have excessive secretion. OBJECTIVE: GENERAL: When I examined him, he looked well and was clearly in no apparent respiratory distress. No pallor, jaundice, cyanosis or thyromegaly. No jugular venous distention. No limb edema. VITAL SIGNS: His heart rate was 78, blood pressure was 164/100, temperature was 97.5, respiratory rate 22, and oxygen saturation was 90%. HEAD, EYES, EARS, NOSE, AND THROAT: Normocephalic, atraumatic. NECK: Supple. HEART: Showed normal first and second heart sounds. No gallop, rub or murmur. CHEST: Clear to auscultation, no crepitation or rhonchi. ABDOMEN: Distended, soft, nontender. NEUROLOGIC: He has profound dementia, mostly nonverbal. ASSESSMENT: 1. This 76-year-old gentleman with profound dementia and agitation. 2. Acute on chronic congestive heart failure, clinically well compensated. 3. History of permanent pacemaker defibrillator. 4. Paroxysmal atrial fibrillation. 5. Type 2 diabetes mellitus. PLAN: To continue with all his current medication. We will increase his morphine and start him also on scopolamine patch and await his acceptance [facility] a [facility] resort. PEPE BUTLER: Edison TID: [id number]
[2021-10-09] MEDS: MORPHINE SULFATE 20 MG/ML CONC SOLUTION. SL PRN ×2 (05:31→08:24)
[2021-10-09] MEDS: LORazepam INTENSOL 2 MG/ML BOTTLE SL PRN ×2 (05:31→08:24)
[2021-10-09 05:35] VITALS: BP 127/97
[2021-10-09] MEDS: CELECOXIB 100 MG CAPSULE PO SCH (07:00)
[2021-10-09] MEDS: metFORMIN 500 MG TABLET PO SCH (07:00)
[2021-10-09] MEDS: GLIMEPIRIDE 2 MG TABLET PO SCH (07:00)
[2021-10-09 09:56] VITALS: BP 120/75
[2021-10-09] MEDS: MORPHINE SULFATE 2 MG/ML DISP.SYRIN. IV PRN ×2 (11:11→13:47)
[2021-10-09] MEDS: MORPHINE SULFATE 30 MG/30 ML 30 ML IV PRN (18:35)
[2021-10-09 19:44] VITALS: BP 128/74
[2021-10-09] MEDS ORDERED: ATROPINE 1% OPHTH SOLUTION 5ML BOTTLE. SL SCH (20:00)
[2021-10-09] MEDS ORDERED: ATROPINE 1% OPHTH SOLUTION 5ML BOTTLE. SL PRN (20:00)
[2021-10-09] MEDS: HALOPERIDOL 10 MG/5 ML ORAL.CONC. PO SCH (20:10)
--- NOTE | 2021-10-09 22:14 | DS ---
DATE OF DISCHARGE: 10/09/2021 HOSPITAL COURSE: The patient is a 76-year-old male patient, who was at home on hospice. He was admitted for respite care. However, the patient's requirement for pain medication has dramatically increased and it was felt that the patient is specified requirement for inpatient hospice and therefore, he was started on morphine drip as well as Ativan drip together with scopolamine and then Haldol as needed for agitation. PHYSICAL EXAMINATION: GENERAL: When I saw him this afternoon, he was resting slightly propped up in bed, in no apparent respiratory distress. There was no pallor, jaundice, cyanosis, or thyromegaly. No jugular venous distention. No lower limb edema. VITAL SIGNS: His heart rate was 81, blood pressure was 120/75, temperature 96.8, respiratory rate was 18, and oxygen saturation was 85%. HEAD, EYES, EARS, NOSE AND THROAT: Normocephalic, atraumatic. NECK: Supple. HEART: Showed normal first and second heart sounds. No gallop, rub or murmur. CHEST: Clear to auscultation, no crepitation or rhonchi. ABDOMEN: Distended, soft, nontender. NEUROLOGIC: He is encephalopathic. FINAL DISCHARGE DIAGNOSES: 1. Profound dementia with agitation. 2. Acute on chronic congestive heart failure. 3. Permanent pacemaker/defibrillator. 4. Paroxysmal atrial fibrillation. 5. Type 2 diabetes mellitus. PLAN: To continue with morphine infusion at 2 mg per hour and Ativan 2 mg per hour together with scopolamine for comfort and end of life care. FERNANDO DR: Edison TID: [id number]
[2021-10-10] MEDS: MORPHINE SULFATE 30 MG/30 ML 30 ML IV PRN (02:30)
== END 2021-10-10 12:15 | DRG 292 ==
LOC: 1 SOUTH 14:55
PROVIDERS: ADMIT Hospitalist; ATTEND Hospitalist
DX: I50.9 Heart failure, unspecified (principal); F03.91 Unspecified dementia, unspecified severity, with behavioral disturbance; G93.40 Encephalopathy, unspecified; I48.0 Paroxysmal atrial fibrillation; E11.9 Type 2 diabetes mellitus without complications; Z95.0 Presence of cardiac pacemaker
CPT/HCPCS: J2060; J2270; Q5005